=== PATIENT | female | born 1945 | race Caucasian/White ===

== ENCOUNTER 2019-02-20 11:50 | Inpatient (IN) ==
--- NOTE | 2019-02-20 12:38 | EKG Report ---
Test Performed on : 02/20/2019 12:29:49 PM Test Reason : stroke like symptoms Blood Pressure : / mmHG Vent. Rate : 067 BPM Atrial Rate : 067 BPM P-R Int : 136 ms QRS Dur : 092 ms QT Int : 388 ms P-R-T Axes : 041 060 046 degrees QTc Int : 409 ms Normal sinus rhythm. Normal ECG When compared with ECG of 09-DEC-2018 17:24, No significant change was found Unconfirmed Result
[2019-02-20 12:51] LABS: BASO# 0.01 X1000 (0.0-0.2); BASO% 0.3 % (0.0-0.8); EOS# 0.18 X1000 (0.0-0.7); EOS% 4.8 % (0.0-10.0); HEMATOCRIT 37.8 % (37.0-47.0); HEMOGLOBIN 12.7 g/dL (12.0-16.0); LYMPH# 0.81 X1000 (1.2-3.4); LYMPH% 21.7 % (20.5-51.1); MCH 31.1 PG (27-31); MCHC 33.6 g/dL (33-37); MCV 92.6 FL (81-99); MONO# 0.21 X1000 (0.11-0.59); MONO% 5.6 % (1.7-9.3); MPV 9.5 FL (7.4-10.4); NEUT# 2.53 X1000 (1.4-6.5); NEUT% 67.6 % (42.2-75.2); PLT 101 X1000 (130-400); RBC 4.08 XMIL (4.2-5.4); RDW 13.4 % (11.5-14.5); WBC 3.74 X1000 (4.8-10.8)
[2019-02-20 12:59] LABS: INR 1.62; PROTIME 19.6 Seconds (11.0-16.0)
[2019-02-20 13:04] LABS: AGAP 11; ALB/GLOB RATIO 1.4; ALBUMIN 3.9 g/dL (3.5-5.0); ALKALINE PHOSPHATASE 78 U/L (32-104); BUN 18 mg/dL (8-22); CALCIUM 9.3 mg/dL (8.8-10.2); CHLORIDE 105 mmol/L (98-107); COSMO 285; CREATININE 0.7 mg/dL (0.5-0.9); ESTIMATED GFR > 60; GLUCOSE 96 mg/dL (70-104); GOT 22 U/L (10-30); GPT 15 U/L (10-36); POTASSIUM 3.4 mmol/L (3.5-5.1); SODIUM 142 mmol/L (136-145); TCO2 26 mmol/L (25-35); TOTAL BILIRUBIN 0.53 mg/dL (0.20-1.00); TOTAL PROTEIN 6.7 g/dL (6.3-8.3)
--- NOTE | 2019-02-20 13:26 | PROVIDER DOCUMENTATION ---
This chart was entered by Nadia Barreto Scribe, acting as scribe for Ping Garcia MD. HPI-Neurological Disorder - General Chief Complaint: Stroke-Like Symptoms Stated Complaint: STROKE LIKE SYMPTOMS Time Seen by Provider: 02/20/19 11:58 Source: patient, family Allergies/Adverse Reactions: Patient Allergies Allergy/AdvReac Type Severity Reaction Status Date / Time No Known Allergies Allergy Verified 09/06/15 09:00 Home Medications: Home Medication List Medication Instructions Recorded Confirmed Last Taken Type Amlodipine [Norvasc] 5 mg PO DAILY 04/16/16 02/20/19 04/15/16 13:00 History Ezetimibe [Zetia] 10 mg PO DAILY 06/04/18 02/20/19 Unknown History Potassium Chloride [Klor-Con M20] 2 tab PO DAILY 12/09/18 02/20/19 Unknown History Rivaroxaban [Xarelto] 10 mg PO DAILY 12/09/18 02/20/19 Unknown History Cyanocobalamin (Vitamin B-12) 2,500 mcg PO DAILY 02/20/19 02/20/19 02/20/19 06:00 History [Vitamin B12] L.acidoph,Paracasei, B.lactis 1 ea PO DAILY 02/20/19 02/20/19 Unknown History [Probiotic] - History of Present Illness-Neuro Nature of Presenting Problem: 73 y/o female presents to ED after an episode of R sided numbness, R sided weakness, and dizziness on Saturday. Pt reports she had an MRI this morning due to her symptoms and Dr. Robles told her to come to ED after he saw the results. Pt denies any current symptoms. 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 Pt reports hx blood clots and states she is on Xarelto. Pt is alert and oriented. Severity: reports: mild Onset/Duration: reports: 6 days ago Timing: reports: still present Context: reports: other (R sided numbness/weakness; dizzy) Character of Altered Mental Status: reports: N/A Any recent trauma/injury?: reports: none Character of Deficits: reports: new weakness New weakness or altered sensation location:: reports: RUE, RLE, right facial Cognitive Baseline: alert, oriented x3 Gait Baseline: walks without assistance Associated Symptoms: reports: dizziness, numbness in legs/feet (R sided), weakness (R sided) Similar Symptoms Previously?: No Recently seen or treated by another doctor?: No Review of Systems - Adult - REVIEW OF SYSTEMS - ADULT Constitutional: denies: chills, fever Eyes: reports: no symptoms reported Ears, Nose, Mouth & Throat: reports: no symptoms reported Cardiovascular: denies: chest pain, palpitations Respiratory: denies: cough, shortness of breath Gastrointestinal: denies: abdominal pain, diarrhea, nausea, vomiting Genitourinary: reports: no symptoms reported Musculoskeletal: denies: back pain, joint pain Integumentary: reports: no symptoms reported Neurological: reports: dizziness/vertigo, numbness (R sided), other (R sided weakness). denies: seizure Psychiatric: reports: no symptoms reported Endocrine: reports: no symptoms reported Hematologic/Lymphatic: reports: no symptoms reported Allergic/Immunologic: reports: no symptoms reported All Other Systems: Reviewed and Negative Past History - Adult - PAST MEDICAL HISTORY-ADULT Review of Records: reports: Old Records Reviewed, Nursing Assessment Review, Medications Reviewed Major Childhood Illnesses: reports: denies history Cardiovascular: reports: HTN, hyperlipidemia Respiratory: reports: denies history Gastrointestinal: reports: cancer (colon with metastasis to liver), liver disease (cancer) Obstetrical/Gynecological: reports: denies history Genitourinary: reports: kidney stones Musculoskeletal: reports: denies history Neurological: reports: denies history Psychiatric: reports: denies history Endocrine/Immune: reports: denies history Other Conditions: reports: denies history - PRIOR SURGERIES/PROCEDURES Surgical/Procedure History: reports: BTL, bowel surgery (colon resection), orthopedic (extremity) (left knee, back sx , eye), joint replacement (TKR), back/neck, other (eye) - PRIOR HOSPITALIZATIONS Prior Hospitalizations: reports: for other non-related - IMMUNIZATION STATUS Childhood Immunizations: See Nurse Assessment Flu Vaccine: See Nurse Assessment - FAMILY HISTORY Family History: reviewed, not pertinent - SOCIAL HISTORY Smoking: non-smoker Substance Use: none/never Alcohol Use Frequency: never Living Situation: family Physical Exam- Neurological - Physical Exam-Neuro Initial Vital Signs Reviewed: Yes General Appearance: appears well, alert, no apparent distress Eye Exam: bilateral eye: normal inspection, PERRL, EOMI HENMT: normocephalic/atraumatic, moist mucous membranes, normal ENT inspection Head Injury: no evidence of injury Neck: non-tender, full range of motion Respiratory: chest non-tender, lungs clear, normal breath sounds Cardiovascular: normal peripheral pulses, regular rate, rhythm Abdominal Exam: normal bowel sounds, non tender, soft Extremity: normal range of motion, non-tender, 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 Exam: normal hearing, normal speech, PERRL Coordination/Gait: normal finger to nose, normal gait Motor/Sensory: no motor deficit, no sensory deficit, no pronator drift Neurologic: boom cat operator II-XII nml as tested, grossly normal, no motor/sensory deficits Integumentary: normal color, warm/dry Psych/Mental Status: normal mood/affect, normal thought content, normal thought process, oriented x 3 Progress - PLAN OF CARE/RESULTS Progress/Plan/Lab Results: Vital Signs - 8 hr 02/20/19 11:54 02/20/19 12:15 02/20/19 12:20 Temperature 97.5 F L Pulse Rate 79 Respiratory Rate 18 Blood Pressure 181/70 O2 Sat by Pulse Oximetry 98 98 99 02/20/19 12:23 02/20/19 12:30 02/20/19 12:32 Temperature Pulse Rate 72 71 73 Respiratory Rate 20 18 16 Blood Pressure 172/119 155/91 O2 Sat by Pulse Oximetry 99 99 99 02/20/19 12:43 02/20/19 13:00 02/20/19 13:02 Temperature Pulse Rate 71 71 71 Respiratory Rate 14 22 18 Blood Pressure 152/80 181/72 O2 Sat by Pulse Oximetry 100 98 99 02/20/19 13:30 02/20/19 13:32 02/20/19 14:00 Temperature Pulse Rate 71 77 67 Respiratory Rate 19 19 13 Blood Pressure 175/109 O2 Sat by Pulse Oximetry 96 98 99 02/20/19 14:02 Temperature Pulse Rate 68 Respiratory Rate 16 Blood Pressure 155/71 O2 Sat by Pulse Oximetry 98 Laboratory Results - last 24 hr 02/20/19 02/20/19 02/20/19 12:30 12:30 12:30 WBC 3.74 L RBC 4.08 L Hgb 12.7 Hct 37.8 MCV 92.6 MCH 31.1 H MCHC 33.6 RDW Std Deviation 13.4 Plt Count 101 L MPV 9.5 Immature Gran % (Auto) 0.0 Neut % (Auto) 67.6 Lymph % (Auto) 21.7 [place] % (Auto) 5.6 Eos % (Auto) 4.8 Baso % (Auto) 0.3 Immature Gran # (Auto) 0.00 Neut # (Auto) 2.53 Lymph # (Auto) 0.81 L [place] # (Auto) 0.21 Eos # (Auto) 0.18 Baso # (Auto) 0.01 PT 19.6 H INR 1.62 Sodium 142 Potassium 3.4 L Chloride 105 Carbon Dioxide 26 Anion Gap 11 BUN 18 Creatinine 0.7 Estimated GFR/1.73 m2 > 60 BUN/Creatinine Ratio 26 Glucose 96 Calculated Osmolality 285 Calcium 9.3 Total Bilirubin 0.53 AST 22 ALT 15 Alkaline Phosphatase 78 Total Protein 6.7 Albumin 3.9 Globulin 2.8 Albumin/Globulin Ratio 1.4 Orders Category Date Time Status Admit - [facility] Routine AdmDCTranf 02/20/19 14:02 Active Activity - Up with Assistance ORDERED Care 02/20/19 14:02 Active Intake and Output-Strict ORDERED Care 02/20/19 14:02 Active Neurological Check Q4H Care 02/20/19 14:06 Active Saline Loc NOW Care 02/20/19 12:13 Active Update & Confirm Home Medicati ROUTINE Care 02/20/19 14:07 Active Vital Signs Order Q 8-HR ASSESS Care 02/20/19 14:02 Active Z-Document. for Tele Applied ORDERED Care 02/20/19 14:05 Active Heart Healthy Diet Diet 02/20/19 14:03 Active CBC WITH DIFF [HEME] Stat Lab 02/20/19 12:30 Completed CBC WITH NO DIFF [HEME] Routine Lab 02/21/19 06:00 Ordered COMPREHENSIVE METABOLIC PANEL [CHEM] Routine Lab 02/21/19 06:00 Ordered COMPREHENSIVE METABOLIC PANEL [CHEM] Stat Lab 02/20/19 12:30 Completed PROTIME WITH INR [COAG] Stat Lab 02/20/19 12:30 Completed Amlodipine [Norvasc] Med 02/20/19 14:15 Active 5 mg PO DAILY Omeprazole [Prilosec] Med 02/21/19 07:00 Active 40 mg PO DAILY@0700 Ondansetron [Zofran] Med 02/20/19 14:02 Active 4 mg IV Q4H PRN PRN Telemetry [OM.EQ] Routine Oth 02/20/19 14:02 Active Carotid Ultrasound Routine Ther 02/20/19 14:00 Completed EKG [EKG] Stat Ther 02/20/19 12:13 Draft Echo Spec/Color Doppler Routine Ther 02/20/19 14:01 Draft Venous U/S Bilateral Legs Routine Ther 02/20/19 14:01 Completed Transfer/Admit Order [TRANSFER] Routine Transfer 02/20/19 14:31 Completed Result Diagrams: 02/20/19 12:30 02/20/19 12:30 - EKG 1 Time of EKG reading by physician:: 12:29 EKG Read and Signed by:: Ping Garcia EKG Interpretation (*Must complete 3 of following elements*): Normal Rate: 67 Rhythm: NSR [place]: normal QRS: normal [place] Interval: normal ST Wave: normal - CONSULTS/PCP/HOSPITALIST Notification #1 *Consult/PCP/Hospitalist*: ANDREW Bradley for Dr. Jarrett Time Discussed: 13:04 Reason/Comments: CVA Consult Disposition: Admit Departure - Departure Date of Disposition Decision: 02/20/19 Time of Disposition Decision: 12:24 DIAGNOSIS: CVA (cerebral vascular accident) Qualifiers: CVA mechanism: unspecified Qualified Code(s): I63.9 - Cerebral infarction, unspecified Disposition: ADMITTED INPATIENT 09 Certified Medical Emergency: Emergent Condition: Stable - Critical Care Note This patient required my direct & personal management of CC.: No Attestation - Physician/ BARRERA Attestation Patient care was provided by Advanced Practice Provider:: No The physician spent face to face time with patient:: Yes Advanced Practice Provider documentation review:: Supervising physician onsite and consulted in the evaluation and care of this patient. The physician did have a face to face encounter with the patient. - NIH Stroke Scale NIH Type: Initial Evaluation Level of Consciousness: 0-Alert LOC Questions (ask month and age): 0-Answers Both Correctly LOC Commands (ask to open & close eyes;make a fist, let go): 0-Obeys Both Correctly Best Gaze (horizontal eye movement): 0-Normal Visual (use finger movement, counting or visual threat): 0-No Visual Loss Facial Palsy (show teeth or raise eyebrows & close eyes tght: 0-Symmetrical Movement Motor Function-left arm: 0-Normal Motor Function-right arm: 0-Normal Motor Function-left le-Normal Motor Function-right le-Normal Limb Ataxia(cxzatz-jvtu-[id number], or heel to regalado): 0-No Ataxia Sensory(pin prick to face,arms,trunk,legs-compare side/side): 0-No Ataxia Best Language(name item/read sentence.Ex-Down to Earth): 0-No Aphasia Dysarthria(Pt read words or say words Ex.Mama,Tip-Top,Thanks: 0-Normal Articulation Extinction and Inattention: 0-Normal NIH Total Score: 0 Modified [place] Score Criteria: 0-no symptoms Stroke tPA Guidelines - Inclusion Criteria for IV tPA 18 years old or older: Yes Ischemic stroke with measurable deficit: Yes Onset <3 hours ago *OR* 3-4.5 hours ago: No - Exclusion Criteria for IV tPA Evidence of intracranial hemorrhage on CT: No Presentation suggest SAH: No CT reveals defined area of hypodensity: No Evidence of AVM, neoplasm, aneurysm: No Seizure at stroke onset: No Active internal bleeding or acute trauma: No Platelet Count Less Than 100,000: No Heparin Within Last 48 HRS (PTT >Lab normal limits): No INR > 1.7 (warfarin use): No Use IIB/IIIA inhibitors within 24 hours: No Serious Head Trauma Within Last 3 Months: No Arterial Puncture Within Last 7 Days: No Lumbar Puncture Within Last 7 Days: No Repeated systolic Blood Pressure >185 or Diastolic >110: No - Additional Exclusion Criteria for IV tPA Currently on Coumadin: No (Xarelto) Patient older than 80: No Prior stroke and diabetes: No Baseline NIHSS score > 25: No - Relative Contraindications to IV tPA CT reveals extensive area of infarct (>1/3 MCA territory): No Minor or rapidly improving stroke symptoms: Yes Major Surgery or Serious Trauma In Previous 14 Days: No AMI within 3 months: No Gastrointestinal or Urinary Tract hemorrhage in Past 21 Days: No Post - AMI pericarditis: No Blood Glucose Less Than 50 mg/dl or Greater Than 400 mg/dl: No - Consultation Candidate for:: NOT A CANDIDATE Reason not a candidate:: No current symptoms. Episode of symptoms was 6 days ago. This chart was documented by the indicated scribe, (Nadia Barreto, Scrd[employer]) and accurately reflects the services I performed and decisions made by , Ping Garcia MD, as attested by the provider's signature.
[2019-02-20] MEDS ORDERED: ZOFRAN IV PRN (14:02)
[2019-02-20] MEDS: NORVASC PO SCH (14:23)
--- NOTE | 2019-02-20 15:23 | ECHO REPORT ---
ORDER DATE: 02/20/2019 INTERPRETING PHYSICIAN: Vicente Montoya MD ECHOCARDIOGRAPHIC MEASUREMENTS: 1. Interventricular septum 1. 2. Left ventricular posterior wall 0.8. 3. Diastolic diameter 3.1. 4. Left atrium 3.1. 5. Aorta 3. SUMMARY OF THE 2-DIMENSIONAL IMAGIN. Aortic valve leaflets are trileaflet. 2. Pulmonic valve was normal. 3. Tricuspid valve was normal. 4. Mitral valve leaflets are normal. 5. There is moderate to severe mitral annular calcification. 6. There is mild tricuspid regurgitation. 7. Peak velocity across the tricuspid valve less than 2 m/sec. 8. Peak velocity across the aortic valve less than 2 m/sec by Doppler studies. 9. There is no aortic stenosis or regurgitation. 10. Normal left ventricular cavity size. 11. Estimated ejection fraction of 65% to 70%. 12. There is mild mitral regurgitation. 13. There is diastolic dysfunction. 14. There is borderline left atrial enlargement. 15. There is no pericardial effusion or obvious intracardiac mass or thrombus seen. cc: MD Dana Ayers CRNP
--- NOTE | 2019-02-20 20:10 | HISTORY AND PHYSICAL ---
CHIEF COMPLAINT: I had a stroke. HISTORY OF PRESENT ILLNESS: This is a 73-year-old female with a history of metastatic colon cancer stage IV with liver metastases, prior right iliac DVT with subsequent GI bleed in May 2018 therefore Xarelto was discontinued and hypertension. She presents to the emergency room upon the instructions of Dr. Robles, her oncologist, after having a brain MRI performed this morning that showed a small recent lacunar infarct in the left thalamus with cerebral white matter chronic microvascular disease. The patient states that last Saturday she began to have numbness and a funny feeling to the middle of her upper lip over to the left side as well as right-sided numbness and weakness to arms and legs and she did have some dizziness. Symptoms subsided. She informed Dr. Robles about this this morning. He ordered an MRI. After having results called him he called and told her to report to the emergency room. In the emergency room she is awake, alert, oriented. The only deficit that is seen is a slight left droop to the corner of her mouth. Of note the patient has had a prior right iliac thrombus for which she was on Xarelto. In May 2018 she was admitted for GI bleed and anticoagulation was stopped at that time. PAST MEDICAL HISTORY: 1. Left stage IV colon cancer status post resection with liver metastasis. 2. Hypertension. 3. GI bleed while on anticoagulation. 4. Hyperlipidemia. PAST SURGICAL HISTORY: Partial colectomy, Port-A-Cath placement. SOCIAL HISTORY: She denies alcohol, tobacco, or illicit drug use. She has daughters that are active in her care. ALLERGIES: No known drug allergies. HOME MEDICATIONS: A list will be obtained by the nursing staff. Once verified will review, restart as appropriate. REVIEW OF SYSTEMS: Discussed with patient with pertinent positives stated in HPI. She denies any syncope, any dizziness after the initial episode on Saturday, any chest pain, palpitations, any fevers, chills, shortness of breath, cough, nausea, vomiting, diarrhea, constipation, black or bloody vomitus or stools, any hematuria, dysuria, frequency, urgency. PHYSICAL EXAMINATION: GENERAL: This is a 73-year-old female who is sitting up in the bed in the emergency room in no distress. VITAL SIGNS: Blood pressure is 181/79 with a heart rate of 79, respirations are 18, temperature is 97.5 degrees with room air saturations 98%. HEENT: Pupils are equal, round, react to light. EOMs are intact. Sclerae anicteric. Head is normocephalic, atraumatic. Mucous membranes are moist. NECK: Supple with trachea midline. CARDIOVASCULAR: Regular rate and rhythm. S1 and S2 appreciated. She has no lower extremity edema. Calves are nontender bilateral with peripheral pulses palpable x4 extremities. PULMONARY: Breath sounds are clear with no increased work of breathing noted. Chest rises and falls symmetric respiration. Chest wall is nontender to palpation . GASTROINTESTINAL: Abdomen soft, nontender, nondistended with bowel sounds in all 4 quadrants. : She has no CVA or suprapubic tenderness. NEUROLOGIC: Pupils are equal, round, react to light. EOMs are intact. Forehead is spared, equal nasal flaring. She does have a droop to the left corner of her mouth. She has no tongue or uvula deviation. No difficulty swallowing. Speech is clear. Shoulder shrug is equal. No plantar drift. Regenerator Operator are equal. Zucvtt-sc-kbjz is 3/3 bilateral with muscle strength 5/5 x4 extremities. LABS: WBC is 3.7 with hemoglobin 12.7, hematocrit 37.8, platelets of 101,000. INR is 1.62. Sodium 142, potassium 3.4, BUN 18, creatinine 0.7 with a glucose of 96. MRI revealed a small recent lacunar infarct in the left thalamus, cerebral white matter chronic microvascular disease. ASSESSMENT AND PLAN: 1. Right lacunar infarct. 2. Hypertension. 3. History of stage IV colon cancer with liver metastases. 4. Previous right iliac thrombus. 5. History of gastrointestinal bleed in May 2018. Anticoagulation was discontinued at this time. PLAN: The patient will be admitted to the hospital with neuro checks every 4 hours. We will obtain a carotid Doppler bilateral, an echocardiogram. The patient her daughter reported her taking a trip to [place] having long car rides in the last 3 weeks and she has had some calf pain since then. We will get a bilateral lower extremity Doppler. We will allow some permissive hypertension accepting a pressure of 160/80. We will restart her Norvasc 5 mg and we can use hydralazine p.r.n. for greater than 160/80. Repeat a CBC and CMP in the morning. We will start Prilosec 40 mg p.o. daily. Further treatments pending hospital course. Plan discussed with Dr Jarrett. Dictated by ANDREW Fraser for Pierre Jarrett MD cc: ANDREW Fraser MD [facility]
--- NOTE | 2019-02-21 04:30 | Carotid Study ---
DATE: 02/20/2019 SYSTEM USED: A [employer] Vivid E9 ultrasound System with a 9 L-D. REFERRING PHYSICIAN: Dr. Garcia. IDENTIFYING DATA: A 73-year-old female. REGIONAL OPERATIONS MANAGER: Kinga Willis RVT. INDICATION: CVA-stroke. FINDINGS: Mild atherosclerotic disease of the distal common and internal carotid arteries bilaterally without evidence of a hemodynamically significant lesion in either carotid system. cc: MD Dana Yost CRNP
[2019-02-21 04:46] LABS: URINE SOURCE CLEAN CATCH
[2019-02-21 04:49] LABS: BILIRUBIN URINE NEGATIVE (NEGATIVE); BLOOD URINE NEGATIVE (NEGATIVE); COLOR YELLOW; GLUCOSE URINE NEGATIVE (NEGATIVE); KETONE URINE NEGATIVE (NEGATIVE); NITRITE URINE NEGATIVE (NEGATIVE); PH URINE 6.5; PROTEIN URINE NEGATIVE (NEGATIVE); SP GRAVITY URINE 1.011; TURBIDITY URINE CLEAR (CLEAR); UROBILINOGEN URINE NORMAL (NORMAL)
[2019-02-21 04:50] LABS: LEUKOCYTES URINE NEGATIVE (NEGATIVE)
--- NOTE | 2019-02-21 04:50 | Extremity Venous Study ---
PROCEDURE NAME: Venous U/S Bilateral Legs - 02/20/2019 STUDY: Bilateral lower extremity venous duplex and color flow imaging study using the [employer] Vivid E9 ultrasound system with a 9 L-D transducer. REFERRING PHYSICIAN: Dr. Garcia. IDENTIFYING DATA: A 73-year-old female. OUTCOMES SPECIALIST: Kinga Willis RVT. INDICATIONS: The patient has a history of right iliac and inferior vena cava deep venous thrombosis. Rule out lower extremity deep venous thrombosis. FINDINGS: Right common femoral vein and its branches, deep and superficial femoral veins were satisfactorily imaged. They had flow through them and were compressible. Right popliteal vein and the deep veins below the right knee were all compressible and had flow through them. The superficial veins of the right lower extremity were compressible throughout their length. The left common femoral vein and its branches, deep and superficial femoral veins were also satisfactorily imaged. They had flow through them and were compressible. Left popliteal vein and the deep veins below the left knee were all compressible and had flow through them. The superficial veins the left lower extremity were compressible throughout their length. INTERPRETATION: No evidence of acute deep or superficial venous thrombosis of the bilateral lower extremities. cc: MD Dana Yost CRNP
[2019-02-21 04:51] LABS: UR EPITHELIAL CELLS <10 /HPF (<10); URINE BACTERIA NEGATIVE /HPF; URINE RBC <10 /HPF (<10); URINE WBC <10 /HPF (<10)
[2019-02-21] MEDS: PRILOSEC PO SCH (06:10)
[2019-02-21 07:04] LABS: HEMATOCRIT 39.2 % (37.0-47.0); HEMOGLOBIN 12.9 g/dL (12.0-16.0); MCH 31.3 PG (27-31); MCHC 32.9 g/dL (33-37); MCV 95.1 FL (81-99); MPV 9.8 FL (7.4-10.4); RBC 4.12 XMIL (4.2-5.4); RDW 13.6 % (11.5-14.5); WBC 3.15 X1000 (4.8-10.8)
[2019-02-21 07:55] LABS: AGAP 15; ALB/GLOB RATIO 1.3; ALBUMIN 3.7 g/dL (3.5-5.0); ALKALINE PHOSPHATASE 71 U/L (32-104); BUN 16 mg/dL (8-22); CALCIUM 9.2 mg/dL (8.8-10.2); CHLORIDE 104 mmol/L (98-107); COSMO 288; CREATININE 0.8 mg/dL (0.5-0.9); ESTIMATED GFR > 60; GLUCOSE 124 mg/dL (70-104); GOT 24 U/L (10-30); GPT 15 U/L (10-36); POTASSIUM 3.4 mmol/L (3.5-5.1); SODIUM 143 mmol/L (136-145); TCO2 24 mmol/L (25-35); TOTAL BILIRUBIN 0.59 mg/dL (0.20-1.00); TOTAL PROTEIN 6.6 g/dL (6.3-8.3)
[2019-02-21] MEDS: NORVASC PO SCH (08:27)
--- NOTE | 2019-02-21 12:55 | PROGRESS NOTE ---
DATE: 02/21/2019 SUBJECTIVE: This morning, Ms. Palomares refers to be doing a lot better. Still has some numbness and sensation of bugs crawling on her right side. OBJECTIVE: Vital signs: Blood pressure is 134/57, pulse of 64, respiration is 14, temperature is 98.2 degrees. General: Ms. Palomares is a 73-year-old female. She is in bed, no distress. HEENT: Mucosa is pink and moist. Anicteric. Acyanotic. Neck: Supple. Chest: Good air entry bilateral. There are no crepitations, no rhonchi. Cardiovascular: Regular rate and rhythm. No murmurs, no rubs, no gallops. There is a port on the right upper chest anterior wall. Central nervous system: Patient is awake, alert, oriented. There is some mild weakness on the right side. There is also decreased sensation to pinprick on the entire right side. Reflexes are unremarkable. Musculoskeletal: The patient has an old scar on the right knee consistent with previous knee replacement surgery. IMAGING STUDIES: 1. A Doppler ultrasound was done yesterday which shows mild atherosclerotic disease of the distal common and internal carotid arteries bilaterally without evidence of any hemodynamic significant stenosis. 2. Echocardiogram shows an ejection fraction of 65 to 70 percent with no wall motion abnormalities. 3. Doppler ultrasound of the lower extremity was negative for any DVT. ASSESSMENT: 1. A left thalamic lacunar infarct resulting into a right-sided mild hemiparesis with hemihypesthesia noted. 2. History of stage IV colon cancer with liver metastasis. Patient follows up with Dr. Robles. He will be notified. 3. Previous right iliac thrombus. 4. Hypertension, currently controlled. 5. 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 6. History of iron and B12 deficiency, on regular infusion by the patient's Heme-Onc. PLAN: In general, I think Ms. Palomares continues to be stable. She has not shown any worsening of her neurological deficits. She is pending an MRA of the brain on Saturday and also Neurology consult. She is currently on amlodipine. We will add aspirin and statin. cc: Pierre Jarrett MD [facility]
[2019-02-21] MEDS: ASPIRIN PO SCH (14:10)
[2019-02-21] MEDS: CRESTOR PO SCH (14:10)
--- NOTE | 2019-02-21 16:03 | HEMO/ONC CONSULTATION ---
DATE: 02/21/2019 CC: Patient admitted with a stroke. HPI: Patient is a 73-year-old female with history of stage IV colon cancer on chemotherapy who presented with mild weakness in the right upper extremity and in her left side of her face. We obtained an MRI which revealed a lacunar stroke. She was sent to the ER for admission. Today, she feels somewhat better. She apparently had some staggering gait before but she has been able to get out of bed and have a bath this morning. Did not feel staggered today. She has undergone echocardiogram and carotid ultrasounds. She received 5-FU and Avastin chemotherapy last on 02/17/2019. She was diagnosed in August 2017 with stage IV cancer and has been on chemotherapy since then. She has done quite well for her age. PAST MEDICAL HISTORY: Colon cancer stage IV, hypertension, history of GI bleeding, hyperlipidemia. PAST SURGICAL HISTORY: Colon resection, Port-A-Cath placement. SOCIAL HISTORY: Patient lives in [place]. She denies alcohol or substance abuse or smoking. ALLERGIES: No known drug allergies. CURRENT MEDICATIONS: Aspirin, Prilosec, Zofran, Crestor and Norvasc. REVIEW OF SYSTEMS: As above. All other review of systems are negative. PHYSICAL EXAMINATION: Patient is an elderly lady who is in no acute distress.Vital Signs: Temperature 98.2 degrees, pulse 64, blood pressure 134/57. HEENT: EOMI. PERRLA. Anicteric. Mucous membranes are moist. Neck: Supple without JVD, thyromegaly, nodules. Lymph node survey negative. Cardiac: Regular rate and rhythm. Normal S1, S2. Chest: Clear to auscultation. Normal respiratory effort. Abdomen: Soft, nontender, without hepatosplenomegaly or masses. Normal bowel sounds. Extremities: No cyanosis, clubbing, or rashes. Neurologic: She has minimal droop to the left corner of her mouth. Strength is 4+ out of 5 in the right upper extremity. LABORATORY DATA: White count 3.1, hemoglobin 12.9, platelets 96,000. ANC 2.5, BUN 16, creatinine 0.8. LFTs are normal. 02/20/2019: MRI brain: Small recent lacunar infarction in the left thalamus. ASSESSMENT AND PLAN: 1. Left thalamic lacunar infarction: Continue aspirin. Further management per hospitalist and neurology. 2. Stage IV colon cancer with liver metastasis: Last chemotherapy with 5-FU and Avastin was on 02/17/2019. She has done remarkably well for the last 18 months with metastatic colon cancer. 3. History of right iliac deep vein thrombosis January 2018: Outpatient she was on Xarelto 10 mg daily. Her clot had resolved in the past. 4. Leukopenia and thrombocytopenia: Most likely due to recent chemotherapy. Not neutropenic at this time. cc: Quan Robles MD
[2019-02-22] MEDS: PRILOSEC PO SCH (06:26)
[2019-02-22] MEDS: NORVASC PO SCH (08:42)
[2019-02-22] MEDS: XARELTO PO SCH (08:42)
[2019-02-22] MEDS: ASPIRIN PO SCH (08:42)
[2019-02-22] MEDS: KLOR-CON PO SCH (08:42)
[2019-02-22] MEDS: VITAMIN B-12 PO SCH (08:42)
[2019-02-22] MEDS: CRESTOR PO SCH (08:42)
[2019-02-22] MEDS: ZETIA PO SCH (08:42)
[2019-02-22] MEDS: PATIENT'S OWN MED PO SCH (08:43)
--- NOTE | 2019-02-22 11:54 | PROGRESS NOTE ---
DATE: 02/22/2019 SUBJECTIVE: This morning, Ms. Palomares refers to be doing a lot better. No new neurological deficit. OBJECTIVE: Vital Signs: Blood pressure is 153/58, pulse of 68, respirations 15, temperature 98.3 degrees. General: Ms. Palomares is a 73-year-old female. She is in bed. No distress. HEENT: Mucosa is pink and moist. Anicteric. Acyanotic. Neck: Supple. Chest: Good air entry bilateral. There are no crepitations, no rhonchi. Cardiovascular: Regular rate and rhythm. No murmurs, no rubs, no gallops. GI: Abdomen is soft, nontender. Bowel sounds present. Extremities: No pedal edema. HACKSAW INSPECTOR: The patient is awake, alert, oriented x4. There is still mild sensation decreased to pinprick on the entire left side, including the face. IMAGING STUDIES: None recently. LABORATORY DATA: No lab work today. ASSESSMENT: 1. Acute left thalamic lacunar infarct resulting into a right-sided mild hemiparesis with hemihypoesthesia noted. 2. History of stage IV colon cancer with metastasis to liver. The patient follows up with Dr. Robles. 3. Previous right iliac thrombus. The patient is on chronic Xarelto therapy. 4. Hypertension, controlled. 5. Thrombocytopenia with leukopenia secondary to recent chemotherapy side effect. 6. History of B12 and iron deficiency. The patient is on infusions as needed with Hematology/Oncology. In general, Ms. Palomares is fairly stable. No new neurological deficits. We are pending the MRA of the brain tomorrow, and also Neurology consult tomorrow. Once that is all done, I think Ms. Palomares can be discharged. cc: Pierre Jarrett MD
[2019-02-23] MEDS: PRILOSEC PO SCH (06:57)
[2019-02-23 08:00] LABS: BASO# 0.02 X1000 (0.0-0.2); BASO% 0.5 % (0.0-0.8); EOS# 0.12 X1000 (0.0-0.7); HEMATOCRIT 40.6 % (37.0-47.0); HEMOGLOBIN 13.6 g/dL (12.0-16.0); LYMPH# 0.79 X1000 (1.2-3.4); LYMPH% 19.6 % (20.5-51.1); MCH 31.1 PG (27-31); MCHC 33.5 g/dL (33-37); MCV 92.7 FL (81-99); MONO# 0.25 X1000 (0.11-0.59); MONO% 6.2 % (1.7-9.3); NEUT# 2.85 X1000 (1.4-6.5); NEUT% 70.7 % (42.2-75.2); PLT 103 X1000 (130-400); RBC 4.38 XMIL (4.2-5.4); RDW 13.4 % (11.5-14.5); WBC 4.03 X1000 (4.8-10.8)
[2019-02-23 08:27] LABS: AGAP 14; BUN 18 mg/dL (8-22); CALCIUM 9.3 mg/dL (8.8-10.2); CHLORIDE 103 mmol/L (98-107); COSMO 287; CREATININE 0.9 mg/dL (0.5-0.9); ESTIMATED GFR > 60; GLUCOSE 127 mg/dL (70-104); PHOSPHORUS 3.5 mg/dL (2.7-4.5); POTASSIUM 3.3 mmol/L (3.5-5.1); SODIUM 142 mmol/L (136-145); TCO2 25 mmol/L (25-35)
[2019-02-23] MEDS: ASPIRIN PO SCH (09:56)
[2019-02-23] MEDS: KLOR-CON PO SCH (09:56)
[2019-02-23] MEDS: VITAMIN B-12 PO SCH (09:57)
[2019-02-23] MEDS: ZETIA PO SCH (09:57)
[2019-02-23] MEDS: XARELTO PO SCH (09:57)
[2019-02-23] MEDS: NORVASC PO SCH (09:57)
[2019-02-23] MEDS: CRESTOR PO SCH (09:57)
--- NOTE | 2019-02-23 10:39 | Diag Imaging Result Doc PS360 ---
EXAM: MRA BRAIN W/O CONTRAST 02/23/2019 HISTORY: CVA TECHNIQUE: 3-D [id number] COMMENT: There is no evidence of aneurysm or major branch occlusion. There is irregularity of both posterior cerebral arteries and the proximal middle cerebral arteries. There is particular narrowing of the left M1 segment. IMPRESSION: Atherosclerotic changes in the posterior and middle cerebral arteries. Electronically signed by Amrik Kohli 02/23/2019 10:37 AM
--- NOTE | 2019-02-23 10:42 | Diag Imaging Result Doc PS360 ---
EXAM: MRA NECK W/CONT 02/23/2019 HISTORY: CVA TECHNIQUE: Contrast-enhanced 3-D MRA COMMENT: Both common carotid arteries are widely patent. The right brachiocephalic artery is apparently patent. The left carotid and brachiocephalic artery appear to arise from a single trunk from the aorta. There is some plaque formation in the proximal left internal carotid artery there may be ulceration in the plaque. Otherwise the internal carotid arteries appear to be patent and the vertebral arteries are patent bilaterally. The basilar artery is unremarkable in appearance. IMPRESSION: Apparent ulcerated plaque in the proximal left internal carotid/carotid bulb. Electronically signed by Amrik Kohli 02/23/2019 10:39 AM
[2019-02-23] MEDS: PATIENT'S OWN MED PO SCH ×2 (11:46→11:47)
--- NOTE | 2019-02-23 14:30 | HEMO/ONC PROGRESS NOTE ---
DATE: 02/23/2019 CHIEF COMPLAINT/HISTORY OF PRESENT ILLNESS: The patient has continued to improve. She has no further neurological deficits. She had an MRA of the brain and neck done this morning. She has no complaints today. OBJECTIVE: Vital Signs: Temperature 98.1 degrees, pulse rate 71, respiratory rate 16, blood pressure 152/60, O2 saturation 100% on room air. She is in 0/10 pain. Physical Examination: General: Elderly-appearing female in no acute distress. Well developed, well nourished. Skin: Warm, dry, and intact without lesions or rashes. Appropriate color for ethnicity. Mouth: Oral mucosa is pink with good dentition. Cardiovascular: Normal S1 and S2. Regular rate and rhythm. No murmurs, gallops, or rubs are appreciated. Respiratory: No signs of respiratory distress. Lung sounds are clear in all lobes bilaterally. Abdomen: Soft, symmetric, and nontender, without distention. Extremities: Upper and lower extremities are atraumatic in appearance without edema or deformity. Neurologic: The patient is awake, alert, and oriented x3. Laboratory: WBC 4.03, hemoglobin 13.6, hematocrit 40.6, platelet count 103,000, ANC 2.85. Potassium 3.3. Neck MRA shows apparent ulcerated plaque in the proximal left internal carotid/carotid bulb. The brain MRA showed atherosclerotic changes in the posterior and middle cerebral arteries. ASSESSMENT: 1. Left thalamic lacunar infarction: Continue further management per hospitalist and neurology. 2. Stage IV colon cancer with liver metastasis: Patient's last chemotherapy with 5-FU and Avastin was on 02/17/2019. She has had no complications with her chemotherapy. 3. History of right iliac deep venous thrombosis in January 2018: As an outpatient. She was on Xarelto 10 mg daily. Her clot has resolved. 4. Leukopenia and thrombocytopenia: This is most likely related to her chemotherapy from last week. She is not neutropenic at this time. We will continue to monitor her. Dictated by ANDREW Belle for Quan Robles MD Patient seen and examined. Patient continues to complain of dizziness and imbalance. Dr. Bravo is seeing her. Evaluation is in progress. Patient doing well from her colon cancer standpoint. I will continue to follow along. Okay to restart Xarelto at 10 mg along with her antiplatelet therapy. Discussed with . Quan Robles M.D. cc: Quan Robles MD [facility] MEDICAL CENTERAmelia
--- NOTE | 2019-02-23 15:20 | CONSULTATION ---
DATE OF CONSULTATION: 02/23/2019 SUBJECTIVE: Ms. Palomares is 73 years old and there is evidence of stroke. History from the patient is that she woke 48 hours ago noticing numbness across the right side of her face, weakness in the right arm, clumsiness in the right arm and leg, stumbling gait. Initially, she had some trouble swallowing but that resolved quickly. She was not aware of dysarthria. There was no difficulty with language. Her head felt funny, but she did not have jyothi headache. She did not notice any vision disturbance beyond her baseline poor vision. There was no altered consciousness, altered awareness. She took a daytrip with some family and had trouble holding a drink in her right hand. She eventually decided to present for evaluation and was admitted. She reports difficulty with right limbs is a little bit improved today. There is no history of prior stoke. She has history of colon cancer with metastatic disease to the liver. There has not been evidence of metastatic disease to the brain. She has not had brain trauma or significant head injury. She has never had a seizure. She reports taking medicine for cholesterol, which might have been Lipitor, several years ago and she did not tolerate that, possibly because of nausea. Recently, she has been taking Zetia. She took Xarelto after diagnosis of DVT and developed some GI bleeding. She stopped Xarelto briefly and resumed that and was taking Xarelto as prescribed at the time of recent event. She was not taking daily aspirin. She takes blood pressure medicine regularly, but ran out of that and missed just 1 dose prior to her stroke 2 days ago. Workup here includes imaging with MRI showing evidence of tiny left thalamic lacune. She has had carotid ultrasound based on her description of workup and that report is pending. Cervical MRA raises question of left internal carotid ulcerative plaque. Brain MRA was unremarkable. Presenting systolic blood pressure was 180s and systolic blood pressures have ranged 130s to 160s since then. Heart rate has been stable 60s to 70s. She has been afebrile. OBJECTIVE: On exam, she is awake, alert, attentive, appropriate. Speech is not dysarthric. Language function is intact on brief bedside testing. Recent and remote memory are good. Head and neck are unremarkable. Visual cox are full, tested grossly by confrontational finger counting. Extraocular movements are full. Facial motility is diminished on the right in an upper motor neuron pattern. The left nasolabial fold is flatter than the right but motility is definitely diminished on the right. She reports diminished pinprick appreciation over the right chin compared to the left. Gag is intact. Tongue consistently protrudes toward the right. Shoulder shrug is equal on the right and left. Strength is normal in the left limbs. I can overcome the right arm at the deltoid grading 4/5, wrist extensors 4+/5, hand stamper 4+/5. I could not find definite weakness in the right leg. Tone is a little bit increased in the right arm. She did rapid alternating movements better with the left hand than the right. She did well on altkjc-id-inon testing bilaterally. She did left [id number]-[id number] better than right [id number]-[id number]. Proprioception is good at the great toe MTP joint bilaterally. She reports symmetric pinprick appreciation over the feet and legs and very inconsistent loss of pinprick appreciation over the dorsum of the right hand compared to the left. I did not test her gait. Reflexes are 1+ at the ankles and wrists symmetrically. Plantar response is silent bilaterally. IMPRESSION: Mild right hemiparesis, minimal sensory deficit, no definite language or vision deficit. This relatively pure motor deficit is consistent with subcortical infarction as demonstrated on MRI. She has risk factors for stroke including age, hypertension, possibly dyslipidemia. This is likely "small vessel disease" and may not be directly related to the carotid findings. I will check on the carotid ultrasound report when released. I would not foreign exchange services manager at this point, but depending on carotid ultrasound report, we might need to consider other management. She needs Xarelto for DVT history and I would continue that. If not contraindicated, we could add low-dose aspirin or clopidogrel. If she can tolerate a statin, I think that would be a reasonable consideration. Thanks for asking Neurology to see Ms. Palomares. cc: MD RAYRAY Crockett III
[2019-02-23 16:01] VITALS: BP 148/60
--- NOTE | 2019-02-24 10:21 | DISCHARGE SUMMARY ---
ADMISSION DATE: 02/20/2019 DISCHARGE DATE: 02/23/2019 DISPOSITION: Home. FOLLOWUP: 1. Dr. Coyle. 2. Dr. Bravo. 3. Dr. Robles. CONSULTATIONS DURING THIS ADMISSION: 1. Hematology Oncology was consulted, patient was seen by Dr. Robles. 2. Neurology was consulted, patient was seen by Dr. Bravo. INVASIVE PROCEDURES DONE DURING THIS ADMISSION: None. IMAGING STUDIES OF SIGNIFICANCE: 1. A carotid ultrasound showed mild atherosclerotic disease of the distal common and internal carotid arteries bilaterally without evidence of any hemodynamically significant lesion. 2. Echocardiogram showed an ejection fraction of 65 to 70% with normal left ventricle cavity size. 3. Doppler ultrasound of the lower extremity showed no evidence of acute DVT. 4. An MRA of the brain showed atherosclerotic changes in the posterior and cerebellar, cerebral arteries. 5. An MRA of the neck showed apparent ulcerated plaque in the proximal left internal carotid artery/bulb. 6. An MRI of the brain which was done on the day of admission showed a small left recent lacunar infarct in the left thalamus. ADMISSION DIAGNOSES: 1. Acute left thalamic lacunar infarct. 2. History of stage IV colon cancer with liver metastases. 3. Previous iliac thrombus. 4. Hypertension. DIAGNOSES AT THE TIME OF DISCHARGE: 1. Acute left thalamic lacunar infarct resulting into a right side mild hemiparesis with libia- hypoesthesia. 2. History of stage IV colon cancer with liver metastases. 3. Previous right iliac thrombus. Patient is on Xarelto therapy. 4. Hypertension. 5. Thrombocytopenia with leukopenia secondary to recent chemotherapy side effects. 6. History of B12 and iron deficiency. Patient follows up with Dr. Robles. DISCHARGE MEDICATIONS: 1. Amlodipine 5 mg p.o. daily. 2. Zetia 10 mg p.o. daily. 3. Xarelto 10 mg p.o. daily. 4. Cyanocobalamin. 5. Aspirin 325 p.o. daily. 6. Crestor 40 mg p.o. daily. PRESENTING COMPLAINT: Stroke. HISTORY OF PRESENTING COMPLAINT: Ms. Palomares is a 73-year-old female with a history of stage IV colon cancer with metastases to the liver, recent right iliac DVT on Xarelto, came to the emergency department because of stroke-like symptoms. According to Ms. Palomares, she has been having some numbness to the right side as well as mild weakness about a week prior. She did not pay it a lot of mind, went to her oncologist for regular chemotherapy treatment, which was done, but then she also told Dr. Robles about the symptoms that she was having, so an MRI was ordered and patient went for it after which she was called by Dr. Robles to go to the emergency room because of confirmed stroke. Ms. Palomares presented to the emergency room and was admitted. HOSPITAL COURSE: Ms. Palomares was admitted to the medical floor under telemonitoring and neurological observation. She did remain stable with no new neurological findings throughout the hospital course. The patient was seen by both Neurology and Hematology Oncology. Multiple studies were done. No findings of any acute or any findings that needed surgical intervention. Ms. Palomares continues to be stable with stable vitals. This morning we think Ms. Palomares is fairly stable. She has completed her neurological workup and has been evaluated by Neurology. We think she is stable for discharge. Her discharge vitals, pressure is 148/60, pulse of 73, respiration is 18, temperature is 98.3 degrees. Physical exam is completely unremarkable except for mild right-sided hemiparesis and mild sensation deficit. She is being discharged in stable condition to continue with home health with physical therapy and also to follow up with Dr. Robles as well as Dr. Bravo. All the discharge instructions have been discussed with Ms. Palomares and she voiced understanding. TIME SPENT FOR DISCHARGE: 36 minutes. cc: MD Dr. Alden Franklin III, MD Naveen T. Lobo, MD
== END 2019-02-23 16:42 | disposition home or self-care (01) | DRG 65 ==
LOC: ED 11:50 → 1N 14:55
PROVIDERS: ATTEND Internal Medicine